=== PATIENT | male | born 1965 | race Caucasian/White ===

== ENCOUNTER → 2019-09-27 | Outpatient (CLI) | payer OTHER ==
--- NOTE | 2019-09-27 08:22 | XR ---
EXAMINATION TYPE: XR lumbosacral spine min 4V DATE OF EXAM: 09/27/2019 CLINICAL HISTORY: pain COMPARISON: NONE TECHNIQUE: Frontal, lateral, and oblique images of the lumbar spine are obtained. FINDINGS: There are 5 lumbar type vertebral bodies identified. The lumbar spine shows satisfactory alignment without evidence of acute fracture or dislocation. Vertebral body heights are within normal limits. Mild degenerative disc space narrowing. The overlying soft tissue appears unremarkable. IMPRESSION: No acute fracture or dislocation is seen in the lumbar spine.ICD 10 NO FRACTURE, INITIAL EVALUATION
== END | disposition home or self-care (01) ==
LOC: RADXRMAIN 08:04
PROVIDERS: ATTEND Family Medicine
DX: M51.36 Other intervertebral disc degeneration, lumbar region (principal)
CPT/HCPCS: 72110

== ENCOUNTER → 2020-01-01 | Outpatient (CLI) | payer OTHER ==
--- NOTE | 2020-01-01 13:14 | XR ---
EXAMINATION TYPE: XR sinus DATE OF EXAM: 01/01/2020 CLINICAL HISTORY: pain Four views of the paranasal sinuses are submitted. Paranasal sinuses demonstrate normal aeration and development. No air-fluid levels are seen. There is mild mucosal thickening along the maxillary si nuses.. Nasal septum is mildly deviated from right to left. No evidence for bony destructive process . IMPRESSION: Mild Chronic sinusitis of the maxillary sinuses.
== END | disposition home or self-care (01) ==
LOC: RADXRMAIN 12:08
PROVIDERS: ATTEND Family Medicine
DX: J32.0 Chronic maxillary sinusitis (principal)
CPT/HCPCS: 70220

== ENCOUNTER → 2022-07-14 | Outpatient (CLI) | payer BC, OTHER | LOC: PNWHC3 10:38 | PROVIDERS: ATTEND Specialist | DX: Z53.9 Procedure and treatment not carried out, unspecified reason (principal) ==

== ENCOUNTER → 2023-08-06 | Outpatient (CLI) | payer MEDICAID ==
--- NOTE | 2023-08-11 03:49 | CT ---
EXAMINATION TYPE: CT chest w con CT DLP: 478 mGycm, Automated exposure control for dose reduction was used. DATE OF EXAM: 08/06/2023 3:07 PM COMPARISON: None available . CLINICAL INDICATION:Male, 58 years old with history of R91.1 PULMONARY NODULE LEFT; PHH, lung nodule, abnormal findings on prior CXR TECHNIQUE: Multiple axial images were obtained through the chest. Sagittal and coronal reformats were created for review. Contrast used:100 mL of Isovue 300 with IV Contrast (None if empty) Oral contrast used: (None if empty) FINDINGS: LUNGS/ PLEURA: Lungs appear clear without evidence of airspace consolidation. A couple tiny nodular d ensities on the left along the oblique fissure are likely intrafissural lymph nodes. There is an 8 mm round solid-appearing nodule in the left lower lobe image 34 series 4. Another 8 mm nodular focus of groundglass opacity in the posterior left upper lobe image 19 adjacent to the fissure. Pleural effus ion or pneumothorax. AIRWAY: Central airways are patent. LOWER NECK: No significant findings. MEDIASTINUM: No enlarged nodes by CT size criteria. HEART: Normal heart size. . No appreciable pericardial effusion. VASCULATURE: No significant aortic calcifications.. Ascending aorta is 3.4 CM, descending is 2.2 CM. No dissection is seen. Pulmonary trunk measures 2.4 CM. Pulmonary trunk is normal in size. SOFT TISSUES/LYMPH NODES: Unremarkable soft tissues. No axillary adenopathy. UPPER ABDOMEN: No mass of the visualized adrenals. MUSCULOSKELETAL: No acute osseous abnormalities. Mild to moderate disc degeneration changes are prese nt throughout the thoracolumbar spine. IMPRESSION: An 8 mm solid nodule and 8 mm groundglass nodule in the left lung, nonspecific. These could be sequel a of infectious/inflammatory process, however neoplasm remains to be excluded. Taking into account [employer] Society guidelines, recommend follow-up CTs at 12 months, then 24 months if unchanged.
== END | disposition home or self-care (01) ==
LOC: RADCTMAIN 14:33
PROVIDERS: ATTEND Family Medicine
DX: R91.1 Solitary pulmonary nodule (principal)
CPT/HCPCS: 71260; Q9967

== ENCOUNTER → 2024-02-08 | Outpatient (CLI) | payer MEDICAID ==
--- NOTE | 2024-02-08 10:16 | CT ---
EXAMINATION TYPE: CT chest w con DATE OF EXAM: 02/08/2024 7:54 AM COMPARISON: 08/06/2023 CLINICAL INDICATION: Male, 58 years old with history of R91.1 SPN; PHH, lung nodues, pt current smoke r TECHNIQUE: Multiple axial images were obtained through the chest. Sagittal and coronal reformats were created for review. MIP was performed on a separate workstation. Contrast used:100 mL of Isovue 300 with IV Contrast (None if empty) Oral contrast used: (None if empty) CT DLP: 219.30 mGycm, Automated exposure control for dose reduction was used. FINDINGS: LUNGS/ PLEURA: No focal consolidation, pneumothorax or pleural effusion. Stable left lower lobe 8 mm pulmonary nodule from 08/06/2023. Probable atelectasis along the right posterior lung not significant ly changed from prior. AIRWAY: Patent and unremarkable. HEART: Size within normal limits. MEDIASTINUM: No gross evidence of adenopathy. VASCULATURE: No aortic aneurysm. MUSCULOSKELETAL: No acute osseous abnormalities SOFT TISSUES/LYMPH NODES: Unremarkable. LOWER NECK: No significant findings. UPPER ABDOMEN: No significant findings. IMPRESSION: Stable left lower lobe 8 mm pulmonary nodule from 08/06/2023. No neural enlarging pulmonary nodules. [facility], , 02/08/2024 10:13 AM
== END | disposition home or self-care (01) ==
LOC: RADCTMAIN 07:02
PROVIDERS: ATTEND Family Medicine
DX: R91.1 Solitary pulmonary nodule (principal); F17.210 Nicotine dependence, cigarettes, uncomplicated
CPT/HCPCS: 71260; Q9967

== ENCOUNTER 2024-08-13 22:45 | Emergency (ER) | payer MEDICAID ==
--- NOTE | 2024-08-14 00:07 | ED ---
Extremity Problem HPI - General Chief complaint: Extremity Problem,Nontraumatic Stated complaint: right leg pain Time Seen by Provider: 08/13/24 23:57 Source: patient, RN notes reviewed Mode of arrival: ambulatory Limitations: no limitations - History of Present Illness Initial comments: This is a 59-year-old male who presents to the emergency department for right leg pain. Patient reports pain to the right leg over the last couple of days. Denies any injuries. States that pain is primarily around the knee and behind it. States that the pain is making it difficult to ambulate. He is on Percocet for chronic pain, and states that it is not helping this. Denies any history of blood clots or similar problems in the past. MD Complaint: extremity pain - Related Data Home Medications Medication Instructions Recorded Confirmed ALPRAZolam [Xanax] 0.5 mg PO HS 10/14/13 08/11/15 Previous Rx's Medication Instructions Recorded Hydrocodone/Acetaminophen [[place] 1 each PO Q6H PRN #20 tab 10/14/13 10-325] Ibuprofen [Motrin] 600 mg PO Q6HR PRN #20 tab 01/01/14 HYDROcodone/APAP 5-325MG [[place] 5] 1 each PO Q4HR PRN #20 tab 08/11/15 Indomethacin [Indocin] 50 mg PO TID PRN #24 capsule 08/11/15 Ketorolac [Toradol] 10 mg PO Q6HR PRN #15 tab 08/14/24 Allergies Allergy/AdvReac Type Severity Reaction Status Date / Time No Known Allergies Allergy Verified 08/13/24 23:39 Review of Systems ROS Statement: Those systems with pertinent positive or pertinent negative responses have been documented in the HPI. ROS Other: All systems not noted in ROS Statement are negative. Past Medical History Past Medical History: No Reported History Additional Past Medical History / Comment(s): anxiety History of Any Multi-Drug Resistant Organisms: None Reported Past Surgical History: Ear Surgery, Orthopedic Surgery Additional Past Surgical History / Comment(s): bilateral ankle surgery Past Anesthesia/Blood Transfusion Reactions: No Reported Reaction Past Psychological History: Anxiety Smoking Status: Current every day smoker Past Alcohol Use History: None Reported Past Drug Use History: Marijuana - Past Family History Mother Family Medical History: Cancer Sister(s) Family Medical History: Cancer General Exam Limitations: no limitations General appearance: alert, in no apparent distress Head exam: Present: atraumatic, normocephalic, normal inspection Respiratory exam: Present: normal lung sounds bilaterally. Absent: respiratory distress, wheezes, rales, rhonchi, stridor Cardiovascular Exam: Present: regular rate, normal rhythm Extremities exam: Present: other (Generalized tenderness in the right popliteal fossa. Range of motion slightly limited by pain. 2+ DP and PT pulses) Neurological exam: Present: alert, oriented X3, CN II-XII intact Psychiatric exam: Present: normal affect, normal mood Course Vital Signs 08/13/24 08/14/24 23:36 01:52 Temperature 97.7 F 97.9 F Pulse Rate 65 59 L Respiratory 18 19 Rate Blood Pressure 116/74 162/91 O2 Sat by Pulse 98 100 Oximetry Medical Decision Making - Medical Decision Making This is a 59-year-old male who presents to the emergency department for right knee pain. Was pt. sent in by a medical professional or institution? @ -No Did you speak to anyone other than the patient for history? @ -No Did you review nursing and triage notes? @ -Yes, and I agree, it is accurate with regards to the patient's symptoms. Were old charts reviewed? @ -No Differential Diagnosis? @ -Differential Musculoskeletal Muscular strain, contusion, ligament sprain, fracture, arthritis, septic arthritis, bursitis, cellulitis, muscle spasm, nerve compression, DVT, arterial occlusion, herpes zoster, electrolyte abnormality, tumor.... This is not meant to be in all inclusive list EKG interpreted by me (3pts min.)? @ -Not obtained X-rays interpreted by me (1pt min.)? @ -X-ray of the right knee obtained. My interpretation identifies no acute fractures. CT interpreted by me (1pt min.)? @ -Not obtained U/S interpreted by me (1pt. min.)? @ -Duplex ultrasound of the right lower extremity obtained. My interpretation identifies no evidence of a DVT. What testing was considered but not performed? (CT, X-rays, U/S, labs)? Why? @ -None What meds were considered but not given? Why? @ -None Did you discuss the management of the patient with other professionals? @ -No Did you reconcile home meds? @ -No Was smoking cessation discussed for >3mins.? @ -I discussed smoking cessation for greater than 3 minutes. The risk of smoking were discussed with the patient including but not limited to risks of cancer, stroke, coronary artery disease and COPD. Also discussed with patient were multiple methods of quitting smoking. Lastly we discussed the financial cost of smoking. Was critical care preformed (if so, how long)? @ -No Were there social determinants of health that impacted care today? How? (Homelessness, low income, unemployed, alcoholism, drug addiction, transportation, low edu. Level, literacy, decrease access to med. care, skilled nursing, rehab)? @ -No Was there de-escalation of care discussed even if they declined? (Discuss DNR or withdrawal of care, Hospice)? @ -No What co-morbidities impacted this encounter? (DM, HTN, Smoking, COPD, CAD, Cancer, CVA, Hep., AIDS, mental health diagnosis, sleep apnea, morbid obesity)? @ -Smoking Was patient admitted / discharged? @ -Discharged. X-ray of the right knee obtained revealing no acute process. Duplex ultrasound of the right lower extremity obtained revealing no evidence of a DVT. Advised that he may have a soft tissue injury involving something like the meniscus or a ligament. Toradol prescribed for pain control. I did offer a knee immobilizer, however he advised that he would rather purchase an [id number] knee sleeve. Information for follow-up with orthopedics provided. Patient discharged home in stable condition. Case discussed with ED attending Dr. Gupta. Return precautions reviewed in depth, the patient is instructed to return to the emergency department with any new, worsening, or concerning symptoms. Patient verbalized understanding. Undiagnosed new problem with uncertain prognosis? @ -None Drug Therapy requiring intensive monitoring for toxicity (Heparin, Nitro, Insulin, Cardizem)? @ -None Were any procedures done? @ -None Diagnosis/symptom? @ -Right leg/knee pain Acute, or Chronic, or Acute on Chronic? @ -Acute Uncomplicated (without systemic symptoms) or Complicated (systemic symptoms)? @ -Uncomplicated Side effects of treatment? @ -None Exacerbation, Progression, or Severe Exacerbation] @ -Not applicable Poses a threat to life or bodily function? @ -No - Radiology Data Radiology results: report reviewed, image reviewed Disposition Clinical Impression: Right leg pain, Nicotine dependence Disposition: HOME SELF-CARE Instructions (If sedation given, give patient instructions): Knee Pain (ED), Leg Pain (ED) Additional Instructions: Return to the emergency department with any new, worsening, or concerning symptoms. Take the Toradol with Tylenol as needed for pain relief. If you choose to take the Toradol, do not take any other anti-inflammatories such as ibuprofen, take one or the other. You can purchase one of those compression knee sleeves to see if that helps with your pain. Contact the orthopedic office listed below Thursday and they will schedule you for a follow-up appointment. Prescriptions: Ketorolac [Toradol] 10 mg PO Q6HR PRN #15 tab PRN Reason: Pain Is patient prescribed a controlled substance at d/c from ED?: No Referrals: None,Stated [REFERRING] - 1-2 days Elisabeth Mcpherson [Doctor of Osteopathic Medicine] - 1-2 days Time of Disposition: 01:36
--- NOTE | 2024-08-14 01:18 | US ---
EXAM: US Duplex Right Lower Extremity Veins CLINICAL HISTORY: US Reason: Right leg pain TECHNIQUE: Real-time duplex ultrasound scan of the right lower extremity veins integrating B-mode two-dimensional vascular structure, Doppler spectral analysis, color flow Doppler imaging and compression. COMPARISON: No relevant prior studies available. FINDINGS: Deep veins: Unremarkable. No DVT in the visualized common femoral, femoral, proximal deep femoral or popliteal veins. The veins demonstrate normal color flow, are normally compressible, with normal phasic flow and/or augmentation response. Superficial veins: Unremarkable. No thrombus in the visualized great saphenous vein. Soft tissues: No acute findings. No popliteal cyst. IMPRESSION: Negative right lower extremity duplex venous ultrasound. No evidence of DVT.
--- NOTE | 2024-08-14 01:19 | XR ---
EXAM: XR Right Knee, 3 Views CLINICAL HISTORY: XR Reason: Pain TECHNIQUE: Three views of the right knee. COMPARISON: No relevant prior studies available. FINDINGS: Bones/joints: There is a rodrigo in the proximal right tibia and mid fibula. Bone mineral density is normal. Mild narrowing and osteophytosis of the medial and to a lesser degree patellofemoral joint spaces consistent with osteoarthritis. No acute fracture or dislocation is seen. No joint effusion. Soft tissues: Unremarkable. IMPRESSION: Mild narrowing and osteophytosis of the medial and to a lesser degree patellofemoral joint spaces consistent with osteoarthritis. No acute fracture, dislocation, or joint effusion.
[2024-08-14] MEDS: KETOROLAC 15 MG/ML 1 ML VIAL IM STA (01:48)
[2024-08-14] MEDS: DEXAMETHASONE SOD PHOSPHATE 10 MG/ML 1 ML VIAL IM STA (01:50)
[2024-08-14 01:55] VITALS: BP 162/91; PULSE 59; RESP 19; TEMP 97.9
== END 2024-08-14 01:55 | disposition home or self-care (01) ==
LOC: EC 22:45
DX: M25.561 Pain in right knee (principal); F17.200 Nicotine dependence, unspecified, uncomplicated
CPT/HCPCS: 99284; 96372 ×2; 73562; 93971; J1100; J1885